=== PATIENT | female | born 1955 | race Caucasian/White ===

== ENCOUNTER 2019-04-19 12:01 | Inpatient (IN) ==
[2019-04-19] MEDS ORDERED: ALBUTEROL/IPRATROPIUM 3 ML NEB RESP TX STA (12:31)
[2019-04-19] MEDS ORDERED: SODIUM CHLORIDE 0.9% 1,000 ML IV STA ×2 (12:31→13:52)
[2019-04-19 13:26] LABS: Basophils % 0.2 % (0.0-0.8); Eosinophils % 0.3 % (0.00-10.9); Hematocrit 43.3 VOL% (35.7-47.0); Hemoglobin 13.7 GM/DL (12.0-16.0); Immature Granulocytes % 0.6 %; Immature Granulocytes Absolute 0.05 #; Lymphocytes # 0.8 10*3/uL (1.4-4.0); Mean Corpuscular HGB Conc 31.6 GM/DL (32-36); Mean Corpuscular Volume 100.5 FL (87-102); Mean Platelet Volume 10.9 FL (9.6-12.0); Monocytes % 4.4 % (1.7-12.7); Neutrophils % 85.5 % (38.7-73.9); Platelet Count 61 T/CUMM (130-400); Red Blood Count 4.31 MC/CUMM (3.8-5.5); Red Cell Distribution Width 13.3 % (9.3-17.3); White Blood Count 8.6 T/CUMM (4-12)
[2019-04-19] MEDS ORDERED: NALOXONE 0.4 MG/ML VIAL IV STA (13:26)
[2019-04-19 13:43] LABS: Alanine Aminotransferase 56 U/L (13-56); Albumin 2.9 G/DL (3.4-5.0); Alkaline Phosphatase 86 U/L (45-117); Aspartate Amino Transferase 65 U/L (0-37); Bilirubin,Total < 0.39 MG/DL (0.2-1.0); Blood Urea Nitrogen 15 MG/DL (7-18); CKMB % 2.2 %; Calcium 7.6 MG/DL (8.5-10.1); Estimated Glom Filtration Rate 46 ML/MIN; Troponin I < 0.015 NG/ML (0.00-0.045)
[2019-04-19 13:48] LABS: Glucose 40 MG/DL (74-106)
[2019-04-19] MEDS ORDERED: VANCOMYCIN INJ 1,000 MG in SODIUM CHLORIDE 0.9% 250 ML IV STA ×2 (13:52→14:03)
[2019-04-19] MEDS ORDERED: DEXTROSE 50% 25 GM/50 ML VIAL IV STA (13:52)
[2019-04-19] MEDS ORDERED: MEROPENEM 2,000 MG in SODIUM CHLORIDE 0.9% 100 ML IV ONE (13:52)
[2019-04-19] MEDS ORDERED: DEXTROSE 50% 25 GM/50 ML SYRINGE IV ONE (13:52)
[2019-04-19 13:57] LABS: INR 1.1; PT Patient Result 11.4 SECS (9.6-12.2)
[2019-04-19 14:15] LABS: Apearance,Urine CLEAR (Clear); Bilirubin,Urine Negative (Negative); Blood, Urine Small mg/dL (Negative); Glucose,Urine (UA) 150 mg/dL (Negative); Ketones,Urine Negative (Negative); Nitrite,Urine Negative (Negative); Protein,Urine Negative; RBC,Urine <1 /HPF (0-4); Urine Color Straw (Yellow); Urine Specific Gravity 1.009 (1.001-1.035); Urine Urobilinogen < 2.0 EU/DL (0.2-1.0); WBC,Urine <1 /HPF (0-6)
[2019-04-19] MEDS ORDERED: MEROPENEM 500 MG VIAL ONE (14:17)
[2019-04-19 14:29] LABS: HIV Antigen/Antibody Result Nonreactive (Nonreactive); Hepatitis B Surface Ag Quant < 0.10 Index; Hepatitis B Surface Ag Result Negative (Negative); Hepatitis C Virus Ab Quant > 11.00 Index; Hepatitis C Virus Ab Result Positive (Negative)
[2019-04-19 14:32] LABS: Barbiturates Screen,Urine Negative (Negative); Benzodiazepines Screen,Urine Negative (Negative); Cannabinoid Screen,Urine Positive (Negative); Opiate Screen,Urine Positive (Negative); Phencyclidine Screen,Urine Negative (Negative)
[2019-04-19 14:45] LABS: Eosinophils 1 % (0-10); Lymphocytes 8 % (20-55); Segmented Neutrophils 83 % (50-85); Total Cells Counted 100
[2019-04-19 14:46] LABS: Macrocytosis Slight; Platelet Estimate Decreased; Poikilocytosis Slight
[2019-04-19] MEDS ORDERED: DEXTROSE 5% NACL 0.9% 1,000 ML IV SCH (15:00)
[2019-04-19] MEDS ORDERED: ALBUTEROL 2.5 MG/3 ML NEB RESP TX PRN (16:09)
[2019-04-19] MEDS ORDERED: ONDANSETRON 4 MG/2 ML VIAL IV PRN (16:09)
[2019-04-19] MEDS: DEXTROSE 5% NACL 0.9% 1,000 ML IV SCH (16:09)
[2019-04-19] MEDS: FAMOTIDINE 20 MG/2 ML VIAL IV SCH (18:36)
[2019-04-20] MEDS ORDERED: NOREPINEPHRINE 8 MG in SODIUM CHLORIDE 0.9% 242 ML IV PRN (00:55)
[2019-04-20] MEDS: DEXTROSE 5% NACL 0.9% 1,000 ML IV SCH ×2 (02:10→14:30)
[2019-04-20 04:50] LABS: Basophils % 0.1 % (0.0-0.8); Hematocrit 33.6 VOL% (35.7-47.0); Hemoglobin 10.9 GM/DL (12.0-16.0); Immature Granulocytes % 0.5 %; Immature Granulocytes Absolute 0.04 #; Lymphocytes # 0.9 10*3/uL (1.4-4.0); Lymphocytes % 11.1 % (21.3-54.2); Mean Corpuscular HGB Conc 32.4 GM/DL (32-36); Mean Corpuscular Volume 96.6 FL (87-102); Mean Platelet Volume 10.1 FL (9.6-12.0); Monocytes % 16.3 % (1.7-12.7); Platelet Count 154 T/CUMM (130-400); Red Blood Count 3.48 MC/CUMM (3.8-5.5); Red Cell Distribution Width 13.2 % (9.3-17.3); White Blood Count 7.7 T/CUMM (4-12)
[2019-04-20] MEDS: FAMOTIDINE 20 MG/2 ML VIAL IV SCH ×2 (04:59→18:15)
[2019-04-20] MEDS: ACETAMINOPHEN 500 MG TABLET PO PRN ×3 (05:04→23:25)
[2019-04-20 05:11] LABS: Calcium 7.9 MG/DL (8.5-10.1); Osmolality,Calculated 282.3 MOS/KG (273-304)
[2019-04-20 05:15] LABS: Band Neutrophils 14 % (0-10); Hypochromasia 1+; Lymphocytes 11 % (20-55); Platelet Estimate Normal; Segmented Neutrophils 62 % (50-85); Total Cells Counted 100
[2019-04-20] MEDS: POTASSIUM CHLORIDE 20 MEQ TABLET PO SCH ×2 (10:37→20:28)
[2019-04-20] MEDS: ALBUTEROL/IPRATROPIUM 3 ML NEB RESP TX SCH ×3 (11:10→20:30)
[2019-04-20] MEDS: MAGNESIUM OXIDE 400 MG TABLET PO SCH (20:28)
[2019-04-21] MEDS: ALBUTEROL/IPRATROPIUM 3 ML NEB RESP TX SCH ×7 (00:26→23:50)
[2019-04-21] MEDS: DEXTROSE 5% NACL 0.9% 1,000 ML IV SCH ×3 (01:56→13:03)
[2019-04-21] MEDS: FAMOTIDINE 20 MG/2 ML VIAL IV SCH ×2 (05:01→16:51)
[2019-04-21 05:28] LABS: Basophils % 0.2 % (0.0-0.8); Eosinophils # 0.1 10*3/uL (0.0-0.87); Eosinophils % 1.7 % (0.00-10.9); Hemoglobin 10.1 GM/DL (12.0-16.0); Immature Granulocytes % 1.1 %; Immature Granulocytes Absolute 0.06 #; Lymphocytes # 1.1 10*3/uL (1.4-4.0); Lymphocytes % 20.9 % (21.3-54.2); Mean Corpuscular HGB Conc 33.7 GM/DL (32-36); Mean Corpuscular Volume 94.3 FL (87-102); Mean Platelet Volume 10.4 FL (9.6-12.0); Monocytes % 11.4 % (1.7-12.7); Neutrophils % 64.7 % (38.7-73.9); Platelet Count 101 T/CUMM (130-400); Red Blood Count 3.18 MC/CUMM (3.8-5.5); Red Cell Distribution Width 13.3 % (9.3-17.3); White Blood Count 5.4 T/CUMM (4-12)
[2019-04-21 05:35] LABS: Calcium 8.2 MG/DL (8.5-10.1); Osmolality,Calculated 293.3 MOS/KG (273-304)
[2019-04-21 05:47] LABS: Lymphocytes 20 % (20-55); Metamyelocytes 1 %; Platelet Estimate Decreased; Polychromasia Few; Segmented Neutrophils 69 % (50-85); Total Cells Counted 100
[2019-04-21] MEDS: POTASSIUM CHLORIDE 20 MEQ TABLET PO SCH ×2 (08:44→20:31)
[2019-04-21] MEDS: MAGNESIUM OXIDE 400 MG TABLET PO SCH (08:44)
[2019-04-21] MEDS: ACETAMINOPHEN 500 MG TABLET PO PRN (10:46)
[2019-04-21] MEDS: KETOROLAC 10 MG TABLET PO PRN (13:02)
[2019-04-21] MEDS: LEVOTHYROXINE 50 MCG TABLET PO SCH (13:02)
[2019-04-21] MEDS: DULoxetine 30 MG CAPSULE PO SCH (13:02)
[2019-04-21] MEDS: carvediloL 6.25 MG TABLET PO SCH (20:31)
[2019-04-22] MEDS: ALBUTEROL/IPRATROPIUM 3 ML NEB RESP TX SCH ×5 (03:00→20:55)
[2019-04-22] MEDS: FAMOTIDINE 20 MG/2 ML VIAL IV SCH ×2 (04:11→18:46)
[2019-04-22 05:35] LABS: Basophils % 0.4 % (0.0-0.8); Eosinophils # 0.2 10*3/uL (0.0-0.87); Eosinophils % 2.5 % (0.00-10.9); Hematocrit 33.7 VOL% (35.7-47.0); Hemoglobin 11.1 GM/DL (12.0-16.0); Immature Granulocytes % 0.6 %; Immature Granulocytes Absolute 0.05 #; Lymphocytes # 1.7 10*3/uL (1.4-4.0); Lymphocytes % 20.6 % (21.3-54.2); Mean Corpuscular HGB Conc 32.9 GM/DL (32-36); Mean Corpuscular Volume 93.4 FL (87-102); Mean Platelet Volume 10.4 FL (9.6-12.0); Monocytes % 9.1 % (1.7-12.7); Neutrophils % 66.8 % (38.7-73.9); Platelet Count 134 T/CUMM (130-400); Red Blood Count 3.61 MC/CUMM (3.8-5.5); Red Cell Distribution Width 13.1 % (9.3-17.3); White Blood Count 8.5 T/CUMM (4-12)
[2019-04-22 05:54] LABS: Osmolality,Calculated 275.5 MOS/KG (273-304)
[2019-04-22 06:15] LABS: Lymphocytes 13 % (20-55); Platelet Estimate Adequate; Polychromasia Few; Segmented Neutrophils 86 % (50-85); Total Cells Counted 100
[2019-04-22] MEDS: carvediloL 6.25 MG TABLET PO SCH ×2 (09:13→20:57)
[2019-04-22] MEDS: LEVOTHYROXINE 50 MCG TABLET PO SCH (09:13)
[2019-04-22] MEDS: KETOROLAC 10 MG TABLET PO PRN (09:13)
[2019-04-22] MEDS: POTASSIUM CHLORIDE 20 MEQ TABLET PO SCH (09:13)
[2019-04-22] MEDS: DULoxetine 30 MG CAPSULE PO SCH (09:13)
[2019-04-22] MEDS ORDERED: MAGNESIUM SULF RIDER 4 GM in PREMIX 1 EACH IV PRN (10:12)
[2019-04-22] MEDS ORDERED: MAGNESIUM SULF RIDER 2 GM in PREMIX 1 EACH IV PRN (10:12)
[2019-04-22] MEDS: FUROSEMIDE 40 MG/4 ML VIAL IV SCH ×2 (11:25→23:59)
[2019-04-22] MEDS: VANCOMYCIN INJ 750 MG in SODIUM CHLORIDE 0.9% 250 ML IV SCH (16:46)
[2019-04-22] MEDS ORDERED: ENOXAPARIN 40 MG/0.4 ML SYRINGE SUBCUT SCH (17:00)
[2019-04-23] MEDS: KETOROLAC 10 MG TABLET PO PRN (00:30)
[2019-04-23] MEDS: ALBUTEROL/IPRATROPIUM 3 ML NEB RESP TX SCH ×5 (00:36→11:11)
[2019-04-23] MEDS: FAMOTIDINE 20 MG/2 ML VIAL IV SCH (04:33)
[2019-04-23] MEDS: VANCOMYCIN INJ 750 MG in SODIUM CHLORIDE 0.9% 250 ML IV SCH (04:34)
[2019-04-23 07:04] LABS: Calcium 8.8 MG/DL (8.5-10.1); Osmolality,Calculated 276.5 MOS/KG (273-304)
[2019-04-23] MEDS: DULoxetine 30 MG CAPSULE PO SCH (09:21)
[2019-04-23] MEDS: carvediloL 6.25 MG TABLET PO SCH (09:21)
[2019-04-23] MEDS: LEVOTHYROXINE 50 MCG TABLET PO SCH (09:21)
[2019-04-23] MEDS: FUROSEMIDE 40 MG/4 ML VIAL IV SCH (09:36)
[2019-04-23] MEDS ORDERED: POTASSIUM CHLORIDE 20 MEQ TABLET PO PRN (11:02)
[2019-04-23] MEDS ORDERED: POTASSIUM CHLORIDE 20 MEQ TABLET PO ONE ×2 (11:10→13:30)
[2019-04-23 12:33] VITALS: BP 104/68
== END 2019-04-23 15:25 | disposition home or self-care (01) | DRG 812 ==
LOC: EDBD → EDUNIT# → N.ED 12:01 → N.EDINP 16:09 → SUATTDRO 16:09 → N.CC 16:26 → N.5E 04-21 15:06
PROVIDERS: ADMIT Internal Medicine Cardiovascular Disease; ATTEND Internal Medicine